=== PATIENT | female | born 1980 | race Asian ===

== ENCOUNTER 2022-11-24 13:03 | Emergency (ER) | payer OTHER ==
[~2022-11-24] VITALS: Ht 167.6 cm; Wt 68.0 kg
[2022-11-24 13:07] VITALS: BP 141/102
--- NOTE | 2022-11-24 13:12 | NUR ---
bloodglucose = 183
--- NOTE | 2022-11-24 13:13 | NUR ---
[facility] BLS TO ER BED 1
[2022-11-24] MEDS ORDERED: METOCLOPRAMIDE 10 MG/2 ML INJ VIAL IVP ONE (13:40)
[2022-11-24] MEDS ORDERED: diphenhydrAMINE 50 MG/ML VIAL IVP ONE (13:40)
[2022-11-24] MEDS ORDERED: KETOROLAC 15 MG/ML VIAL IVP ONE (13:40)
[2022-11-24] MEDS ORDERED: NACL 0.9% 1,000 ML IV ONE (13:40)
[2022-11-24 13:53] LABS: BASOPHILS # (AUTO) 0.1 K/uL (0.00-0.22); BASOPHILS % (AUTO) 0.8 % (0.0-2.0); EOSINOPHILS # (AUTO) 0.1 K/uL (0-0.4); EOSINOPHILS % (AUTO) 0.6 % (0.0-4.0); HEMOGLOBIN 12.1 g/dL (12.0-16.0); LYMPHOCYTES # (AUTO) 5.4 K/uL (2.5-16.5); LYMPHOCYTES % (AUTO) 36.6 % (20.5-51.1); MEAN CORPUSCULAR HEMOGLOBIN 28 pg (27-31); MEAN CORPUSCULAR HGB CONC 34 g/dL (33-37); MEAN CORPUSCULAR VOLUME 83.4 fL (80-94); MONOCYTES # (AUTO) 0.9 K/uL (0.8-1.0); MONOCYTES % (AUTO) 5.9 % (1.7-9.3); NEUTROPHILS # (AUTO) 8.3 K/uL (1.8-7.7); NEUTROPHILS % (AUTO) 56.1 % (42.2-75.2); PLATELET COUNT (AUTO) 427 K/uL (140-450); RED BLOOD CELL COUNT(AUTO) 4.32 MIL/uL (4.20-5.40); RED CELL DISTRIBUTION WIDTH 13.8 % (11.6-13.7); WHITE BLOOD COUNT (AUTO) 14.8 K/uL (4.8-10.8)
[2022-11-24 14:15] LABS: ALBUMIN 3.7 g/dL (3.4-5.0); ANION GAP 13.9 (8-16); ASPARTATE AMINOTRANSFERASE 26 U/L (15-37); CARBON DIOXIDE 25.5 mmol/L (21-32); CHLORIDE 101 mmol/L (98-107); CREATININE 0.8 mg/dL (0.6-1.3); GFR ARICAN-AMERICAN 102 mL/min (>90); GLUCOSE 119 mg/dL (74-106); LIPASE 107 U/L (73-393); POTASSIUM 3.4 mmol/L (3.5-5.1); SODIUM SERUM 137 mmol/L (136-145); TOTAL BILIRUBIN 0.4 mg/dL (0.0-1.0); UREA NITROGEN, BLOOD 11 mg/dL (7-18)
--- NOTE | 2022-11-24 14:15 | NUR ---
medicated for headache and nausea, no distress noted, sr on cm, o 2 sat 98 ra, sr up times 2
--- NOTE | 2022-11-24 15:35 | NUR ---
feels better about headache, no nausea or vomiting, o2 sat 98% ra sr up times 2
[2022-11-24 15:38] LABS: APPEARANCE,URINE CLEAR (CLEAR); BILIRUBIN,URINE NEGATIVE (NEGATIVE); BLOOD, URINE 1+ (NEGATIVE); COLOR,URINE YELLOW (YELLOW); LEUKOCYTE ESTERASE ,URINE 1+ (NEGATIVE); NITRITE, URINE NEGATIVE (NEGATIVE); UGLUCOSE TRACE (NEGATIVE)
[2022-11-24 15:53] LABS: TRICHOMONAS,URINE None Seen /HPF (None Seen); YEAST,URINE None Seen /HPF (None Seen)
[2022-11-24 15:54] LABS: CALCIUM OXALATE CRYSTALS,UR None Seen /HPF (None Seen)
[2022-11-24] MEDS ORDERED: NITR100C7 PO ×2 (16:05→16:58)
[2022-11-24] MEDS ORDERED: ONDA-188 PO ×2 (16:05→16:58)
[2022-11-24] MEDS ORDERED: ACET-10509 PO ×2 (16:05→16:58)
[2022-11-24 17:00] VITALS: BP 117/76
--- NOTE | 2022-11-24 17:04 | NUR ---
Patient discharged with v/s stable. Written and verbal after care instructions given and explained. Patient verbalized understanding. Ambulatory with steady gait. All questions addressed prior to discharge. Advised to follow up with PMD.
== END 2022-11-24 17:00 | disposition home or self-care (01) ==
LOC: MED 13:03
DX: R55 Syncope and collapse (principal); H92.01 Otalgia, right ear; R42 Dizziness and giddiness; E11.9 Type 2 diabetes mellitus without complications; I10 Essential (primary) hypertension; E78.00 Pure hypercholesterolemia, unspecified; Z79.4 Long term (current) use of insulin; Z79.899 Other long term (current) drug therapy
CPT/HCPCS: 36415; 80053; 81001; 81025; 83690; 84484; 85025; 87086; 93005; 96361; 96374; 96375; 99284; J1200; J1885; J2765; J7030